=== PATIENT | male | born 1970 | race Caucasian/White ===

== ENCOUNTER 2023-08-18 09:41 | Outpatient (REF) | payer OTHER, SELFPAY ==
--- NOTE | ~2023-08-18 | XR_ITS ---
EXAMINATION: XR SHOULDER, RIGHT XR SHOULDER, LEFT CLINICAL INDICATION: Pain in bilateral shoulders. TECHNIQUE: 2 views of each shoulder. FINDINGS: RIGHT SHOULDER: Mild degenerative changes in the acromioclavicular joint with joint space narrowing and hypertrophic change. Asymmetric sclerosis along the greater tuberosity. Glenohumeral alignment preserved. LEFT SHOULDER: Mild degenerative changes in the acromioclavicular joint with joint space narrowing and hypertrophic change. Glenohumeral alignment preserved. XR/XR shoulder RT min 2V IMPRESSION: Mild degenerative changes in the bilateral acromioclavicular joints.
--- NOTE | ~2023-08-18 | XR_ITS ---
EXAMINATION: XR SHOULDER, RIGHT XR SHOULDER, LEFT CLINICAL INDICATION: Pain in bilateral shoulders. TECHNIQUE: 2 views of each shoulder. FINDINGS: RIGHT SHOULDER: Mild degenerative changes in the acromioclavicular joint with joint space narrowing and hypertrophic change. Asymmetric sclerosis along the greater tuberosity. Glenohumeral alignment preserved. LEFT SHOULDER: Mild degenerative changes in the acromioclavicular joint with joint space narrowing and hypertrophic change. Glenohumeral alignment preserved. XR/XR shoulder LT min 2V IMPRESSION: Mild degenerative changes in the bilateral acromioclavicular joints.
== END 2023-08-18 09:42 | disposition home or self-care (01) ==
LOC: HO.HOSX 09:41
PROVIDERS: Visit Provider Orthopaedic Surgery
DX: M25.512 Pain in left shoulder (principal); M25.511 Pain in right shoulder
CPT/HCPCS: 73030

== ENCOUNTER 2023-08-18 13:33 | Outpatient (AMB) | payer OTHER, SELFPAY ==
--- NOTE | 2023-08-18 13:44 | MHC.OFFVIS ---
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 The patient denies any weakness. He has been modifying his weightlifting routine at the gym. Most of the discomfort is along the lateral aspects of his shoulders. He has not had an injection. He does take meloxicam as needed. Allergies amoxicillin Allergy (Mild, Verified 08/18/23 13:59) Rash Medication List - Last Reconciled 08/18/23 by Abel Vu MD diclofenac sodium 1% (Arthritis Pain (diclofenac)) 2 grams topical QID meloxicam 15 mg PO DAILY Physical Exam Const Other: Well-nourished well-developed very friendly female awake alert and oriented x3 in no acute distress Extrem Other: Bilateral upper extremity examination shows good capillary refill, no skin lesions noted, normal sensation light touch Bilateral shoulder examination shows forward flexion to 170 degrees, external rotation is 60 degrees, internal rotation to level L2, 5/5 strength with supraspinatus testing, positive impingement signs, tenderness over his acromioclavicular joint, no instability Results Reviewed Results Reviewed: X-rays of the patient's bilateral shoulders taken today show moderate to severe acromioclavicular joint narrowing, type 2 acromion, no acute bony abnormalities Assessment & Plan Assessment & Plan (1) Right shoulder pain: Code(s): M25.511 - Pain in right shoulder Category: Medical (2) Left shoulder pain: Code(s): M25.512 - Pain in left shoulder Category: Medical Plan Mr. Curry presents with intermittent bilateral shoulder pains due to impingement syndrome. I had a lengthy discussion with the patient regarding the treatment options. At this point the patient's symptoms are tolerable to him. He will continue with his activity modifications. The do's and don'ts of lifting were discussed at length with the patient. He will follow up with me on an as-needed basis should his symptoms worsen in any way. I spent 20 minutes in reviewing the patient's records and imaging studies, seeing the patient and documenting in the medical record. Orders: Orders XR shoulder LT min 2V Today M25.512 - Pain in left shoulder XR shoulder RT min 2V Today M25.511 - Pain in right shoulder Coding Level of Care Code New Pt Level 2 (01341) Diagnoses Right shoulder pain M25.511 Left shoulder pain M25.512
== END 2023-08-18 14:31 | disposition home or self-care (01) ==
PROVIDERS: Visit Provider Orthopaedic Surgery
DX: M75.41 Impingement syndrome of right shoulder (principal); M75.42 Impingement syndrome of left shoulder
CPT/HCPCS: 99202

== ENCOUNTER 2023-12-22 12:55 | Outpatient (AMB) | payer OTHER, SELFPAY ==
--- NOTE | 2023-12-22 12:58 | MHC.OFFVIS ---
Intake Visit Reasons: Right shoulder pain and weakness Intake Note: Sonny is a 53 year old male who presents with complaints of progressively worsening right shoulder pain and weakness. The patient's last visit with me was on 08/18/2023. Since that time his right shoulder pain and weakness have gotten worse. Has done physical therapy which aggravated his pain. He has also tried Tylenol and anti-inflammatory medicines which gave him minimal relief. He has applied diclofenac topical gel as well which gives him minimal relief. He reports difficulty lifting his right hand above shoulder height. He has failed the last 6 weeks of conservative treatment. His pain has gotten worse over the last 4 months. Allergies amoxicillin Allergy (Mild, Verified 12/22/23 13:04) Rash Medication List - Last Reconciled 12/22/23 by Abel Vu MD diclofenac sodium 1% (Arthritis Pain (diclofenac)) 2 grams topical QID meloxicam 15 mg PO DAILY methylprednisolone (Medrol (Manoj)) PO PER PKG DIR Physical Exam Const Other: Well-nourished well-developed very friendly male awake alert and oriented x3 in no acute distress Extrem Other: Bilateral upper extremity examination shows good capillary refill, no skin lesions noted, normal sensation light touch Right shoulder examination shows decreased range of motion when compared to his left shoulder, 4+ out of 5 strength with supraspinatus testing, positive impingement signs, no instability Results Reviewed Results Reviewed: X-rays of the patient's right shoulder taken previously show severe acromioclavicular joint narrowing, a type 2 acromion, no acute bony abnormalities Assessment & Plan Assessment & Plan (1) Right shoulder pain: Code(s): M25.511 - Pain in right shoulder Category: Medical Plan Mr. Curry presents with progressively worsening right shoulder pain and weakness due to impingement syndrome and possible rotator cuff tearing. The patient's symptoms have gotten worse in spite of continued non operative treatments since his last visit in July. Thus, I will send him for an MRI of his right shoulder to further evaluate the status of his rotator cuff tendons. I will see him back once the MRI is completed to discuss the findings and treatment options. He will continue with his [id number] exercises in the meantime to prevent stiffness. I spent 21 minutes in reviewing the patient's records and imaging studies, seeing the patient and documenting in the medical record. Orders: Orders MR shoulder RT wo con Today M25.511 - Pain in right shoulder Medications: New methylprednisolone (Medrol (Manoj)) PO PER PKG DIR 21 ea 0RF Coding Level of Care Code Est Pt Level 3 (66645) Complex EM visit Add On G2211 Diagnoses Right shoulder pain M25.511
== END 2023-12-22 13:15 | disposition home or self-care (01) ==
PROVIDERS: Visit Provider Orthopaedic Surgery
DX: M75.41 Impingement syndrome of right shoulder (principal); M25.511 Pain in right shoulder
CPT/HCPCS: 99213

== ENCOUNTER → 2023-12-22 12:55 | Outpatient (BNVA) | payer OTHER, SELFPAY | PROVIDERS: Visit Provider Orthopaedic Surgery ==

== ENCOUNTER 2024-01-13 10:48 | Outpatient (REF) | payer OTHER, SELFPAY ==
--- NOTE | ~2024-01-13 | MR_ITS ---
EXAMINATION: MR SHOULDER WITHOUT CONTRAST, RIGHT CLINICAL INFORMATION: Shoulder pain. COMPARISON: None available. TECHNIQUE: MRI of the shoulder without contrast was performed on a high-field scanner. FINDINGS: ROTATOR CUFF: [id number] supraspinatus tendinosis. Linear T2 signal in the distal anterior fibers measuring 0.4 x 0.5 cm, from possible intrasubstance tear. Linear T2 signal in the posterior fibers measuring 0.8 x 0.5 cm, probable intrasubstance tear. Moderate infraspinatus tendinosis. Teres minor is intact. Mild subscapularis tendinosis. There is thinning/partial tearing of the distal tendon measuring 2.2 cm medial to lateral. No muscle atrophy or fatty infiltration. BICEPS: The long head biceps tendon is not visualized, suggestive of full-thickness tear and distal retraction. CORACOACROMIAL ARCH: The undersurface of the acromion is curved with no subacromial spur. Moderate acromioclavicular arthritis. Mild subacromial subdeltoid bursitis. LABRUM/CAPSULE: No displaced labral tear is seen. GLENOHUMERAL JOINT/MARROW: No evidence of acute fracture. Greater tuberosity subcortical degenerative cysts. No suspicious marrow signal changes. No significant joint effusion. MR/MR shoulder RT wo con IMPRESSION: 1. Eegv-rs-ykifslwn supraspinatus tendinosis. Possible 0.4 x 0.5 cm intrasubstance tear anteriorly. Probable 0.8 x 0.5 cm intrasubstance tear posteriorly. 2. Moderate infraspinatus tendinosis. 3. Mild subscapularis tendinosis. Thinning/partial tearing of the distal tendon measuring 2.2 cm medial to lateral. 4. Findings suggestive of full-thickness tear of the long head biceps tendon with distal retraction. 5. Moderate acromioclavicular arthritis. Mild subacromial subdeltoid bursitis. Electronically signed by: Freedom Meléndez MD 01/26/2024 04:42 PM EST
== END 2024-01-13 10:49 | disposition home or self-care (01) ==
LOC: HO.MRI 10:48
PROVIDERS: Visit Provider Orthopaedic Surgery
DX: M25.511 Pain in right shoulder (principal)
CPT/HCPCS: 73221

== ENCOUNTER 2024-02-17 13:53 | Outpatient (AMB) | payer OTHER, SELFPAY ==
--- NOTE | 2024-02-17 13:55 | A.OFFVIS_ITS ---
Vital Signs 02/17/24 13:59 Height 5 ft 9 in Weight 231 lb BMI 34.1 Intake Visit Reasons: Right shoulder pain Intake Note: Sonny is a 53 year old male who presents with complaints of progressively worsening right shoulder pain. He describes his pain as sharp in nature. Most of the pain is along the superior and lateral aspects of his shoulder. Denies any weakness. He has had multiple injections given into his right shoulder. The most recent cortisone injection gave him minimal relief. He has not been able to exercise because of his pain. Has tried Tylenol, anti-inflammatory medicines and topical diclofenac gel which gave him minimal relief. The patient denies any numbness or tingling in either of his upper extremities. Allergies amoxicillin Allergy (Mild, Verified 02/17/24 13:55) Rash Medication List - Last Reconciled 02/18/24 by Abel Vu MD diclofenac sodium 1% (Arthritis Pain (diclofenac)) 2 grams topical QID meloxicam 15 mg PO DAILY Physical Exam Vital Signs: BMI result Body Mass Index 34.1 Const Other: Well-nourished well-developed very friendly male awake alert and oriented x3 in no acute distress Extrem Other: Bilateral upper extremity examination shows good capillary refill, no skin lesions noted, normal sensation light touch Right shoulder examination shows full range of motion when compared to his left shoulder, 5/5 strength with supraspinatus testing, positive impingement signs, tenderness over his acromioclavicular joint, no instability Results Reviewed Results Reviewed: MRI of the patient's right shoulder show severe acromioclavicular joint jalen rowing, a type 3 acromion, signal change within the supraspinatus tendon most likely due to rotator cuff tendinosis Assessment & Plan Assessment & Plan (1) Right shoulder pain: Code(s): M25.511 - Pain in right shoulder Category: Medical (2) Impingement of right shoulder: Code(s): M25.811 - Other specified joint disorders, right shoulder Category: Medical Plan Mr. Curry presents with progressively worsening right shoulder pain due to impingement syndrome and acromioclavicular joint arthritis. I had a lengthy discussion with the patient regarding the treatment options. At this point he has failed continued non operative treatments. The risks and benefits of right shoulder surgery were discussed at length with the patient. The patient wishes to proceed with surgery. Surgery will most likely involve right shoulder diagnostic arthroscopy with distal clavicle excision and acromioplasty. The patient will be scheduled for our next available date. He will be given a prescription for pain medicine at the time of his surgery. He will continue with his home stretching program in the meantime. He will follow-up as instructed. I spent 20 minutes in reviewing the patient's records and imaging studies, seeing the patient and documenting in the medical record. Coding Level of Care Code Est Pt Level 3 (70881) Complex EM visit Add On G2211 Diagnoses Right shoulder pain M25.511 Impingement of right shoulder M25.811
[2024-02-17 13:59] VITALS: BMI 34.1
== END 2024-02-17 14:20 | disposition home or self-care (01) ==
PROVIDERS: Visit Provider Orthopaedic Surgery
DX: M25.511 Pain in right shoulder (principal); M25.811 Other specified joint disorders, right shoulder
CPT/HCPCS: 99213

== ENCOUNTER → 2024-02-17 13:53 | Outpatient (BNVA) | payer OTHER, SELFPAY | PROVIDERS: Visit Provider Orthopaedic Surgery ==

== ENCOUNTER 2024-04-14 05:55 | Day surgery (SDC) | payer OTHER, SELFPAY ==
[2024-04-12 12:28] VITALS: BMI 34.7
--- NOTE | 2024-04-13 11:40 | P.CONAN_ITS ---
Documented by User: Soledad Elizalde NP 04/13/24 11:41 HPI - Anesthesia Eval Consult details Narrative: 53yo M for Shoulder Arthroscopy,distal clavical,acromioplasty,rotator Cuff Repair PMFSH Active Problems Active Problems: All Active Problems Impingement of right shoulder (Acute) Right shoulder pain (Acute) Left shoulder pain (Acute) Past Medical History Medical History H/O sigmoidoscopy Shoulder pain Sebaceous cyst Renal stone Obese Mixed hyperlipidemia Lactose intolerance Lyme disease Gilbert syndrome Elbow pain Central serous retinopathy GERD (gastroesophageal reflux disease) Surgical History Surgical History History of vasectomy Hx of cholecystectomy Social History Social History Are you a primary healthcare facility administrator to a significant other at home: No Do you presently have visiting nurse or other home services: No Patient Tobacco Use Status: Never used Tobacco Have you been hit, kicked, punched, or otherwise hurt by someone within the past year? If so, by whom?: No Are you DNR?: No Advance Directives: No Advance Directives Information Provided: Yes Recently lost weight without trying: No Nutrition Risks: No Nutritional Risk Meds Allergies Allergy/AdvReac Type Severity Reaction Status Date / Time amoxicillin Allergy Mild Rash Verified 04/14/24 06:20 Active Medications: Current Medications Clindamycin Phosphate (Cleocin) 900 mg in 50 mls @ 50 mls/hr IV PREOP ONE Stop: 04/14/24 06:53 Home Medications ?Medication ?Instructions ?Recorded ?Confirmed ?Last Taken ?Type diclofenac sodium 1 % topical gel 2 g topical QID 08/18/23 04/14/24 Unknown History (Arthritis Pain (diclofenac)) meloxicam 15 mg tablet 15 mg PO DAILY 08/18/23 04/12/24 04/13/24 History famotidine 20 mg tablet 20 mg PO DAILY 04/12/24 04/12/24 Unknown History Exam Height,Weight and Vital Signs: Height 5 ft 8.98 in Weight 106.6 kg Assessment and Plan Assessment Anesthesia Assessment: Chart Reviewed Documented by User: Esperanza Rangel MD 04/14/24 08:33 PMFSH Past Medical History Medical History H/O sigmoidoscopy Shoulder pain Sebaceous cyst Renal stone Obese Mixed hyperlipidemia Lactose intolerance Lyme disease Gilbert syndrome Elbow pain Central serous retinopathy GERD (gastroesophageal reflux disease) Family History Family history of problems with anesthesia: No Surgical History Surgical History History of vasectomy Hx of cholecystectomy History of Problems with Anesthesia: No Social History Social History Are you a primary healthcare facility administrator to a significant other at home: No Do you presently have visiting nurse or other home services: No Patient Tobacco Use Status: Never used Tobacco Have you been hit, kicked, punched, or otherwise hurt by someone within the past year? If so, by whom?: No Are you DNR?: No Advance Directives: No Advance Directives Information Provided: Yes Recently lost weight without trying: No Nutrition Risks: No Nutritional Risk Meds Allergies Allergy/AdvReac Type Severity Reaction Status Date / Time amoxicillin Allergy Mild Rash Verified 04/14/24 06:20 Home Medications ?Medication ?Instructions ?Recorded ?Confirmed ?Last Taken ?Type diclofenac sodium 1 % topical gel 2 g topical QID 08/18/23 04/14/24 Unknown History (Arthritis Pain (diclofenac)) meloxicam 15 mg tablet 15 mg PO DAILY 08/18/23 04/12/24 04/13/24 History famotidine 20 mg tablet 20 mg PO DAILY 04/12/24 04/12/24 Unknown History Exam Airway Mallampati Class: II TM Dist: >3cm Neck ROM: Full Heart: rrr Lungs: cta Assessment and Plan Assessment Anesthesia Assessment: Anesthesia Plan Discussed Final Anesthetic Review Family History of Problems with Anesthesia: No History of Problems with Anesthesia: No NPO: Yes ASA Class: II and III Final Preanesthetic Review: No Changes in Pt Med Stat, Meds/Allgs Chart Reviewed, Consent Obtained/Reviewed and Anes Risks/Benef Reviewed Patient Risk: Low Procedure Risk: Intermediate Anesthetic Plan Anesthetic Plan: GA and Regional Block Disposition: Standard PACU
[2024-04-14] VITALS (10 sets, daily range): BP systolic 97–137; BP diastolic 61–80; PULSE 60–84; RESP 12–20; TEMP 36.3–36.7; O2SAT 89–99; BMI 34.3
[2024-04-14] MEDS: Lactated Ringers 1,000 ML 100 ML IVCONT (06:25)
[2024-04-14] MEDS: Clindamycin Phosphate/D5W 900 MG/50 ML PIGGYBACK 50 MG IV (07:35)
--- NOTE | 2024-04-14 09:27 | P.BOP_ITS ---
Brief Operative Note Date of Service: 04/14/24 Pre-op diagnosis: Right shoulder impingement syndrome, right shoulder acromioclavicular joint arthritis, right shoulder adhesive capsulitis Post-op diagnosis: same Procedure: Right shoulder diagnostic arthroscopy with right shoulder arthroscopic distal clavicle excision, right shoulder arthroscopic acromioplasty, right shoulder arthroscopic capsular release, right shoulder manipulation under anesthesia Implants: none Surgeon: Abel Vu MD Anesthesia: GETA and regional Was an Administrator Of Home Health used for this Procedure?: No Estimated blood loss (mL): 10 Pathology: none sent Condition: stable Disposition: PACU
--- NOTE | 2024-04-14 09:28 | P.OP_ITS ---
Operative Note Operative Note Date of Service: 04/14/24 Narrative: After the patient was identified as Sonny Curry and his right shoulder was initialed by myself the patient was brought to the holding area where a right shoulder interscalene regional block was performed by the anesthesiologist in routine fashion. The patient was then brought to the operating room where general anesthesia was induced by the anesthesiologist in routine fashion. Because of the patient's allergy to amoxicillin he was given 900 mg of IV clindamycin preoperatively for infection prophylaxis. Examination under anesthesia of the patient's right shoulder showed decreased passive range of motion when compared to the left shoulder. The patient's right shoulder had passive forward flexion to 140 degrees compared to 170 degrees, external rotation to 30 degrees compared to 60 degrees, and internal rotation to 50 degrees compared to 60 degrees. The patient was gently positioned in the beach chair position with all bony prominences well padded. The patient's right shoulder region and upper extremity were prepped and draped in sterile fashion. A formal time-out was completed. A #11 scalpel blade was used to make a posterior portal 2 cm inferior and 1 cm medial to the posterolateral corner of t he acromion. Blunt trocar technique was used to enter the glenohumeral joint in routine fashion. An anterior portal was made just lateral to the coracoid process after proper positioning was confirmed using a spinal needle. Diagnostic arthroscopy showed minimal degenerative changes of the glenoid and humeral head articular surfaces. There was no evidence of rotator cuff tearing. There biceps tendon was not identified. There was inflammation of the anterior joint capsule consistent with adhesive capsulitis. The ArthroCare Wand was then used to perform an anterior capsular release between the inferior border of the biceps tendon and the superior border of the subscapularis tendon. The arthroscope was then placed from the posterior portal into the subacromial space. A lateral portal was made 2 fingerbreadths lateral to the anterior lateral corner of the acromion. The ArthroCare Wand was used to ablate soft tissues along the undersurface of the acromion as well as to excise the co racoacromial ligament. There was a sharp spur along the undersurface of the acromion which was removed using the hooded bur. The arthroscope was then placed into the lateral portal and the acromioplasty was completed with the bur in the posterior portal using the posterior aspect of the acromion as a cutting block. The ArthroCare Wand was then brought in through the anterior portal and was used to ablate soft tissues along the acromioclavicular joint and distal clavicle. The posterior and superior ligamentous structures were left intact. A distal clavicle excision of 8 mm was performed using the fluted bur. Any remaining bursal tissue was removed using the arthroscopic shaver. The subacromial space was irrigated and then drained. All arthroscopic instruments were removed. A gentle manipulation under anesthesia was then performed. Full passive range of motion was easily attained. The 3 portals were closed with 3-0 nylon interrupted suture. The subacromial space was injected with Marcaine. Dry sterile dressing was placed over all incisions. The patient's right upper extremity was placed into a sling. The patient was awoken and extubated in the operating room. The patient was transferred to the recovery room in stable condition.
== END 2024-04-14 11:03 | disposition home or self-care (01) ==
PROVIDERS: Visit Provider Orthopaedic Surgery
PROC: (CPT 29805; principal; 2024-04-14 07:30)
DX: M75.41 Impingement syndrome of right shoulder (principal); M75.01 Adhesive capsulitis of right shoulder; M19.011 Primary osteoarthritis, right shoulder; M25.511 Pain in right shoulder; E80.4 Gilbert syndrome; E78.2 Mixed hyperlipidemia; Z79.899 Other long term (current) drug therapy; Z88.0 Allergy status to penicillin; Z98.52 Vasectomy status; Z90.49 Acquired absence of other specified parts of digestive tract
CPT/HCPCS: 29824; 29825; 29826; J0131; J0171; J0665; J0736; J1100; J2003; J2250; J2405; J2704; J2795; J3010

== ENCOUNTER → 2024-04-14 05:55 | Outpatient (BNV) | payer OTHER, SELFPAY | PROVIDERS: Visit Provider Orthopaedic Surgery | DX: M75.41 Impingement syndrome of right shoulder (principal); M19.011 Primary osteoarthritis, right shoulder; M75.01 Adhesive capsulitis of right shoulder | CPT/HCPCS: 29806; 29824; 29826 ==

== ENCOUNTER 2024-04-27 12:18 | Outpatient (AMB) | payer OTHER, SELFPAY ==
--- NOTE | 2024-04-27 12:21 | A.OFFVIS_ITS ---
Vital Signs 04/27/24 12:22 Height 5 ft 9 in Weight 232 lb BMI 34.3 Intake Visit Reasons: PO RT shoulder 04/14/24 DR Intake Note: Sonny is a 53 year old male who presents today for a post operative RT shoulder , DOS 04/14/[address] Vu. 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 He is no longer having continuous pain or taking pain medications. Patient thinks he pulled a muscle on his right forearm, states this happened before. Patient denies numbness or tingling. Allergies amoxicillin Allergy (Mild, Verified 04/27/24 12:22) Rash Medication List - Last Reconciled 04/27/24 by Lion Rose PA-C diclofenac sodium 1% (Arthritis Pain (diclofenac)) 2 grams topical QID famotidine 20 mg PO DAILY HPI HPI PO RT shoulder 04/14/24 DR: Details: 52 yo male returns to the office today status post right shoulder arthroscopy on 04/14/[address] Vu. He is doing well. He has occasional discomfort with reaching. [facility] Medical History H/O sigmoidoscopy Shoulder pain Sebaceous cyst Renal stone Obese Mixed hyperlipidemia Lactose intolerance Lyme disease Gilbert syndrome Elbow pain Central serous retinopathy GERD (gastroesophageal reflux disease) Surgical History History of vasectomy Hx of cholecystectomy Social History Are you a primary child day care center worker to a significant other at home: No Do you presently have visiting nurse or other home services: No Patient Tobacco Use Status: Never used Tobacco Review of Systems Const All systems reviewed & are unremarkable except as noted in HPI and below Physical Exam Vital Signs: BMI result Body Mass Index 34.3 Extrem Other: Right shoulder incision clean dry and intact. No erythema. Sensation intact. Assessment & Plan Assessment & Plan (1) Impingement of right shoulder: Code(s): M25.811 - Other specified joint disorders, right shoulder Category: Medical Plan: Sutures removed today Steri-Strips applied. I stressed the importance of avoiding heavy lifting overhead or repetitive motions for the next 4 weeks. I did offer physical therapy which he declined today. He will return to work in 2 weeks on May 15 with limitations no lifting pushing pulling or carrying greater than 10 lb. He will return in [address] Vu, sooner if needed. Orders: Orders PT Evaluation and Treatment Today M25.811 - Other specified joint disorders, right shoulder Coding Level of Care Code Global (23099) Diagnoses Impingement of right shoulder M25.811
[2024-04-27 12:22] VITALS: BMI 34.3
== END 2024-04-27 12:57 | disposition home or self-care (01) ==
PROVIDERS: PCP Internal Medicine; Visit Provider Physician Assistant
DX: M25.811 Other specified joint disorders, right shoulder (principal)
CPT/HCPCS: 99024

== ENCOUNTER → 2024-04-27 12:18 | Outpatient (BNVA) | payer OTHER, SELFPAY | PROVIDERS: PCP Internal Medicine; Visit Provider Physician Assistant ==

== ENCOUNTER 2024-05-12 09:32 | Outpatient (AMB) | payer OTHER, SELFPAY ==
--- NOTE | 2024-05-12 09:32 | A.OFFVIS_ITS ---
Intake Visit Reasons: TH-PO RT shoulder 04/14/24 Intake Note: Pt presents to the office today as a telehealth visit for a PO RT shoulder 04/14/24 Pt states he is doing well and has minimal pain. Pt states he has been working on the exercises Dr. Vu gave him. Allergies amoxicillin Allergy (Mild, Verified 05/12/24 09:33) Rash Medication List - Last Reconciled 05/12/24 by Lion Rose PA-C diclofenac sodium 1% (Arthritis Pain (diclofenac)) 2 grams topical QID famotidine 20 mg PO DAILY HPI HPI TH-PO RT shoulder 04/14/24 DR: Details: 53-year-old presents for telehealth follow-up right shoulder status post arthroscopy with Dr. Vu on 04/14/2024. Patient states he has been doing home exercises and has noticed some improvement in his motion and some strength. His pain is improving. PFS Medical History H/O sigmoidoscopy Shoulder pain Sebaceous cyst Renal stone Obese Mixed hyperlipidemia Lactose intolerance Lyme disease Gilbert syndrome Elbow pain Central serous retinopathy GERD (gastroesophageal reflux disease) Surgical History History of vasectomy Hx of cholecystectomy Social History Are you a primary career development counselor to a significant other at home: No Do you presently have visiting nurse or other home services: No Patient Tobacco Use Status: Never used Tobacco Review of Systems Const All systems reviewed & are unremarkable except as noted in HPI and below Physical Exam Const General: cooperative and no acute distress Orientation/consciousness: patient oriented x3 Resp Effort & Inspection: normal respiratory effort and able to speak in complete sentences Cardio Peripheral pulses: Peripheral pulses 2+ throughout Neuro General: patient oriented x3 Telehealth Telehealth Telehealth Platform: Telephone Location of provider rendering services: practice address Location of patient: address on file Patient Identification confirmed using: Name, : Yes Telehealth method: voice only Patient verbally consented to treatment: Yes Patient verbally consented to billing insurance company: Yes Patient informed of any privacy concerns related to visit: Yes Assessment & Plan Assessment & Plan (1) Impingement of right shoulder: Code(s): M25.811 - Other specified joint disorders, right shoulder Category: Medical Plan: Patient will continue to work on his home exercise program to improve his motion and strength. He will return to work on 05/15 with no lifting pushing pulling or carrying greater than 10 lb. Does have a follow up on 05/25/[address] Vu and we will anticipate full duty no restrictions at that time if all goes well. Coding Level of Care Code Global (22767) Diagnoses Impingement of right shoulder M25.811
== END 2024-05-12 10:00 | disposition home or self-care (01) ==
LOC: HO.HOS 09:32
PROVIDERS: PCP Internal Medicine; Visit Provider Physician Assistant
DX: M25.811 Other specified joint disorders, right shoulder (principal)
CPT/HCPCS: 99024

== ENCOUNTER → 2024-05-12 09:32 | Outpatient (BNVA) | payer OTHER, SELFPAY | PROVIDERS: PCP Internal Medicine; Visit Provider Physician Assistant ==

== ENCOUNTER 2024-05-25 11:42 | Outpatient (AMB) | payer OTHER, SELFPAY ==
[2024-05-25 11:46] VITALS: BMI 34.3
--- NOTE | 2024-05-25 11:46 | MHC.OFFVIS ---
Vital Signs 05/25/24 11:46 Height 5 ft 9 in Weight 232 lb BMI 34.3 Intake Visit Reasons: PO-4wk f/u RT shoulder 04/14/24 Intake Note: Sonny is 53 year old male who presents today post-operatively after undergoing a right shoulder arthroscopy on 04/14/24. Patient reports he is doing well. Taking Tylenol PRN with some relief. He continues with his home stretching program. He denies any fevers or chills. Allergies amoxicillin Allergy (Mild, Verified 05/25/24 11:49) Rash Medication List - Last Reconciled 05/25/24 by Abel Vu MD diclofenac sodium 1% (Arthritis Pain (diclofenac)) 2 grams topical QID famotidine 20 mg PO DAILY PFSH Medical History H/O sigmoidoscopy Shoulder pain Sebaceous cyst Renal stone Obese Mixed hyperlipidemia Lactose intolerance Lyme disease Gilbert syndrome Elbow pain Central serous retinopathy GERD (gastroesophageal reflux disease) Surgical History History of vasectomy Hx of cholecystectomy Social History Are you a primary residential care facility manager to a significant other at home: No Do you presently have visiting nurse or other home services: No Patient Tobacco Use Status: Never used Tobacco Physical Exam Vital Signs: BMI result Body Mass Index 34.3 Extrem Other: Right shoulder examination shows that the surgical incisions are well healed, no erythema, slightly decreased range of motion when compared to his left shoulder, minimal discomfort with resisted forward flexion, no instability Assessment & Plan Assessment & Plan (1) Right shoulder pain: Code(s): M25.511 - Pain in right shoulder Category: Medical Plan Mr. Curry continues to do well after undergoing right shoulder arthroscopic surgery on 04/14/2024. He will continue with his home stretching program. The do's and don'ts of lifting were discussed at length with the patient. He will follow up with me on an as-needed basis should his symptoms not plateau at an unacceptable level over the next few months. Feel free to call me at any time should questions regarding his orthopedic management arise. Coding Level of Care Code Global (30589) Diagnoses Right shoulder pain M25.511
== END 2024-05-25 12:24 | disposition home or self-care (01) ==
LOC: HO.HOS 11:42
PROVIDERS: PCP Internal Medicine; Visit Provider Orthopaedic Surgery
DX: M25.511 Pain in right shoulder (principal)
CPT/HCPCS: 99024

== ENCOUNTER → 2024-05-25 11:42 | Outpatient (BNVA) | payer OTHER, SELFPAY | PROVIDERS: PCP Internal Medicine; Visit Provider Orthopaedic Surgery ==